=== PATIENT | male | born 1995 | race African-American/Black ===

== ENCOUNTER 2017-03-08 15:57 | Emergency (ER) | payer SELFPAY ==
[~2017-03-08] VITALS: Ht 180.3 cm; Wt 89.5 kg
[2017-03-08 16:01] VITALS: BP 132/83; PULSE 85; RESP 15; TEMP 98.3; O2SAT 100
--- NOTE | 2017-03-08 16:52 | PD ---
HPI Chief Complaint: Complaint Time Seen by Provider: 16:30 Travel History International Travel<30 days: No Contact w/Intl Traveler<30days: No Traveled to known affect area: No History of Present Illness HPI 21-year-old male presents to the emergency room requesting treatment for STD. Patient had exposure to gonorrhea 10 days ago. He went to the health department 2 days ago and had a workup done including blood work and urine. Patient states it would take 10 days for the results to come back and he wanted to be treated now psychiatric the emergency room. He denies any systemic signs of infection. No testicular pain. He had burning with urination that started this morning but denies any discharge. No chronic medical conditions or daily medications. History Past Medical Histgory Medical History: Denies Significant Hx Tetanus Vaccination: Unknown Past Surgical History Surgical History: No Previous Surgery Social History Alcohol Use: No Tobacco Use: No Allergies-Medications (Allergen,Severity, Reaction): Coded Allergies: No Known Allergies (Unverified , 03/08/17) Reported Meds & Prescriptions Reported Meds & Active Scripts Active No Active Prescriptions or Reported Medications Review of Systems Except as stated in HPI: all other systems reviewed are Neg Physical Exam Narrative GENERAL: Well-nourished, well-developed male in no acute distress. Afebrile. Ambulatory. SKIN: Focused skin assessment warm/dry. HEAD: Normocephalic. EYES: No scleral icterus. No injection or drainage. NECK: Supple, trachea midline. No JVD or lymphadenopathy. CARDIOVASCULAR: Regular rate and rhythm without murmurs, gallops, or rubs. RESPIRATORY: Breath sounds equal bilaterally. No accessory muscle use. Data Data Last Documented VS Vital Signs Date Time Temp Pulse Resp B/P Pulse Ox O2 Delivery O2 Flow Rate FiO2 03/08/17 16:01 98.3 85 15 132/83 100 MDM Medical Screen Exam Complete: Yes Emergency Medical Condition: No Differential Diagnosis STD Narrative Course 21 -year-old male presents to the emergency room requesting treatment for STD. He had an exposure 2 weeks ago. He went to the health department 2 days ago and had a full workup for STDs but has to wait 10 days for the results. Developed some burning with urination today. Denies discharge, testicular torsion, abdominal pain, fever, chills, nausea, vomiting. There are no urgent or emergent medical conditions at this time. A medical screening exam was performed: At the time of evaluation the presenting medical condition was determined not to be of an emergent nature. The patient was given the option of receiving additional care, but declined. Patient was given options for additional community resources from which to obtain care. The Patient Has Been advised to seek medical attention for their presenting complaint. The patient has been advised to return to the ER at any time if an emergent condition develops. Primary Impression: Encounter for medical screening examination Scripts No Active Prescriptions or Reported Meds Disposition: 01 DISCHARGE HOME Condition: Stable Sujata Cedeño Mar 08, 2017 16:52
== END 2017-03-08 16:30 | disposition left against medical advice (07) ==
LOC: PHEFT 15:57
DX: R30.0 Dysuria (principal); Z20.2 Contact with and (suspected) exposure to infections with a predominantly sexual mode of transmission
CPT/HCPCS: 99281

== ENCOUNTER 2017-09-19 17:41 | Emergency (ER) | payer SELFPAY ==
[2017-09-19 17:43] VITALS: BP 169/90; PULSE 75; RESP 14; TEMP 97.9; O2SAT 99
--- NOTE | 2017-09-19 19:04 | PD ---
HPI Chief Complaint: Complaint Time Seen by Provider: 18:55 Travel History International Travel<30 days: No Contact w/Intl Traveler<30days: No Traveled to known affect area: No History of Present Illness HPI 22 YO M presents to the ED for evaluation of a few hours history of dysuria. Patient states that he also noted yellow penile discharge. He states that he had unprotected sex with a female partner about a week ago. He denies fevers, chills, nausea, vomiting, abdominal pain, testicular pain. He's never had a pain like this before. No treatment attempted at home. PFSH Past Medical History Diminished Hearing: No Social History Alcohol Use: No Tobacco Use: No Substance Use: No Allergies-Medications (Allergen,Severity, Reaction): Coded Allergies: No Known Allergies (Unverified , 03/08/17) Reported Meds & Prescriptions Reported Meds & Active Scripts Active No Active Prescriptions or Reported Medications Review of Systems Except as stated in HPI: all other systems reviewed are Neg Physical Exam Narrative GENERAL: Well-nourished, well-developed black male in no acute distress.. SKIN: Focused skin assessment warm/dry. HEAD: Normocephalic. EYES: No scleral icterus. No injection or drainage. NECK: Supple, trachea midline. No JVD or lymphadenopathy. CARDIOVASCULAR: Regular rate and rhythm without murmurs, gallops, or rubs. RESPIRATORY: Breath sounds equal bilaterally. No accessory muscle use. GASTROINTESTINAL: Abdomen soft, non-tender, nondistended. Active bowel sounds. GENITOURINARY: Uncircumcised. Small amount of smegma in the foreskin. Testes descended bilaterally without evidence of rotation. No lesions or erythema. No urethral discharge. MUSCULOSKELETAL: No cyanosis, or edema. BACK: Nontender without obvious deformity. No CVA tenderness. Data Data Last Documented VS Vital Signs Date Time Temp Pulse Resp B/P (MAP) Pulse Ox O2 Delivery O2 Flow Rate FiO2 09/19/17 17:43 97.9 75 14 169/90 (116) 99 Orders Orders Urinalysis - C+S If Indicated (09/19/17 17:59) Gc And Chlamydia Pcr (09/19/17 17:59) Azithromycin Powd Pack (Zithromax Powd P (09/19/17 19:15) Ceftriaxone Inj (Rocephin Inj) (09/19/17 19:15) Lidocaine 1% Inj (50 Ml) (Xylocaine 1% I (09/19/17 19:15) Urine Culture (09/19/17 17:59) Sulfamet-Trimeth Ds 800-160 Mg (Bactrim (09/19/17 20:45) Ed Discharge Order (09/19/17 20:37) Labs Laboratory Tests Test 09/19/17 17:59 09/19/17 18:00 Urine Color YELLOW Urine Turbidity CLEAR Urine pH 6.0 Urine Specific Cecil 1.028 Urine Protein TRACE mg/dL Urine Glucose (UA) NEG mg/dL Urine Ketones NEG mg/dL Urine Occult Blood NEG Urine Nitrite NEG Urine Bilirubin NEG Urine Urobilinogen LESS THAN 2.0 MG/DL Urine Leukocyte Esterase LARGE Urine RBC 6 /hpf Urine WBC 52 /hpf Urine Mucus FEW /lpf Microscopic Urinalysis Comment CULTURE INDICATED MDM Medical Decision Making Medical Screen Exam Complete: Yes Emergency Medical Condition: Yes Differential Diagnosis UTI versus gonorrhea versus chlamydia versus other Narrative Course 22 YO M presents to the ED for evaluation of a few hours history of dysuria. Patient states that he also noted yellow penile discharge. He states that he had unprotected sex with a female partner about a week ago. He denies fevers, chills, nausea, vomiting, abdominal pain, testicular pain. Vitals reviewed. Physical exam is unremarkable. I discussed the risks of unprotected sex with the patient. I offered him empiric treatment for gonorrhea and chlamydia. He would like to undergo that treatment. UA reveals large leukocyte esterase, many WBCs. Patient's prescribed Bactrim DS twice a day, first dose administered in the ED. This is UTI, dysuria with probable gonorrhea, chlamydia infection. Patient is instructed to use condoms with every sexual encounter, follow-up in one week with the health department for test of cure, avoid sexual activity, notify all sexual partners. He indicated understanding of instructions and is agreeable care when necessary. The patient is stable and discharged home. Diagnosis Primary Impression: Dysuria Additional Impression: Urinary tract infection Qualified Codes: N39.0 - Urinary tract infection, site not specified [facility] Patient Instructions: Chlamydia (ED), General Instructions, Gonorrhea (ED), Urinary Tract Infection in Men (ED) Additional Instructions: Use condoms with every sexual encounter. Notify all partners of any STD. Abstain from sex until test of cure is proven. Follow-up with the health Department in one week for complete STD screening and test of cure. Return to the ED for any urgent or emergent medical condition. Med/Other Pt SpecificInfo: Prescription(s) given Scripts No Active Prescriptions or Reported Meds Disposition: 01 DISCHARGE HOME Condition: Stable Yaneli Adair Sep 19, 2017 19:04
[2017-09-19] MEDS ORDERED: LIDOCAINE HCL 1% 50 ML VIAL XX ONE (19:15)
[2017-09-19] MEDS ORDERED: cefTRIAXone 250 MG VIAL IM ONE (19:15)
[2017-09-19] MEDS ORDERED: AZITHROMYCIN PWD FOR SUSP 1 GM PACKET PO ONE (19:15)
[2017-09-19 20:31] LABS: BLOOD, URINE NEG (NEG); COMMENT (UR) CULTURE INDICATED; CULTURE IF INDICATED CULTURE INDICATED; GLUCOSE,URINE NEG (NEG); KETONE, URINE NEG (NEG); MUCUS URINE FEW /lpf (OCC); NITRITE,URINE NEG (NEG); URINE COLOR YELLOW (YELLW/STRAW)
[2017-09-19] MEDS ORDERED: BACT800T5 PO (20:39)
[2017-09-19] MEDS ORDERED: SULFAMETHOXAZOLE-TRIMETHOPRIM DS 800-160 MG TAB PO ONE (20:45)
[2017-09-19 20:58] LABS: CHLAMYDIA PCR DETECTED (NOT DETECT); NEISSERIA PCR DETECTED (NOT DETECT)
== END 2017-09-19 20:50 | disposition home or self-care (01) ==
LOC: NEPK 17:41
DX: N39.0 Urinary tract infection, site not specified (principal)
CPT/HCPCS: 81001; 87086; 87491; 87591; 96372; 99284; J0696